=== PATIENT | male | born 1990 | race Caucasian/White ===

== ENCOUNTER 2019-09-23 08:35 | Emergency (ER) | payer OTHER ==
[2019-09-23] MEDS ORDERED: IBUPROFEN 800 MG TAB As Ordered ONE (09:52)
[2019-09-23] MEDS ORDERED: IBUPROFEN 800 MG TAB ONE (09:52)
--- NOTE | 2019-11-07 08:47 | REP ---
RIGHT HAND SERIES: 09/23/19 CLINICAL: Injury. NOTE: Examination is made available for evaluation and dictation on 10/23/19. FINDINGS: There is a fracture at the distal metaphysis of the fifth metacarpal bone with volar angulation and overlying soft tissue swelling (Boxers fracture).Remainder of the examination appears normal. IMPRESSION: Boxers fracture at the distal aspect of the fifth metacarpal bone. MTDD
== END 2019-09-23 10:38 | disposition home or self-care (01) ==
LOC: M ED 08:35
DX: S62.306A Unspecified fracture of fifth metacarpal bone, right hand, initial encounter for closed fracture (principal); W22.8XXA Striking against or struck by other objects, initial encounter; Y92.099 Unspecified place in other non-institutional residence as the place of occurrence of the external cause; Y93.9 Activity, unspecified; Y99.9 Unspecified external cause status